=== PATIENT | female | born 1985 | race Caucasian/White ===

== ENCOUNTER 2021-03-03 20:26 | Emergency (ER) | payer OTHER ==
[2021-03-03 22:53] LABS: BASOPHIL 0.9 % (0-2); EOSINOPHIL 5.5 % (0-5); HCT 39.6 % (37.0-47.0); HGB 13.6 g/dl (12.5-16.0); LYMPHOCYTE 26.4 % (15-48); MCH 32.9 pg (25.0-31.0); MCHC 34.3 g/dL (32.0-36.0); MCV 95.9 fL (78.0-100.0); MONOCYTE 6.4 % (0-12); MPV 10.3 fL (6.0-9.5); NEUTROPHIL 60.5 % (41-80); NRBC 0; PLT 316 K/uL (150-400); RBC 4.13 M/uL (4.20-5.40); RDW 11.7 % (11.5-14.0); WBC 12.9 K/uL (4.0-10.5)
[2021-03-03 22:54] LABS: BILIRUBIN NEGATIVE (NEGATIVE); BLOOD NEGATIVE Ery/uL (NEGATIVE); CLARITY CLEAR (CLEAR); GLUCOSE (U) NORMAL (NORMAL); LEUKOCYTES 1+ Leu/uL (NEGATIVE); NITRITE NEGATIVE (NEGATIVE); PROTEIN NEGATIVE (NEGATIVE); UROBILINOGEN 0.2 mg/dL (0.2-1.0); pH 6.5 (5.0-9.0)
[2021-03-03 22:55] LABS: COLOR STRAW (YELLOW)
[2021-03-03 23:03] LABS: ALBUMIN 3.5 g/dL (3.4-5.0); BILIRUBIN - TOTAL 0.3 mg/dL (0.2-1.0); BUN/CREAT RATIO (CALC) 10.1 RATIO; CREATININE 0.79 mg/dL (0.51-0.95); GLOBULIN (CALCULATION) 3.8 g/dL; POTASSIUM 3.7 mmol/L (3.5-5.1); TOTAL PROTEIN 7.3 g/dL (6.4-8.2)
[2021-03-03 23:12] LABS: BACTERIA TRACE
[2021-03-03 23:13] LABS: URINARY RBC RARE
[2021-03-03 23:21] LABS: CORONAVIRUS 2019 SARS-COV-2 NEGATIVE (NEGATIVE); INFLUENZA A NAA NEGATIVE (NEGATIVE)
[2021-03-04] MEDS ORDERED: FIORICET1 EACH PO (00:13)
== END 2021-03-04 00:36 | disposition home or self-care (01) ==
LOC: FER 20:26
PROVIDERS: Emergency Medicine Emergency Medical Services
DX: R51.9 Headache, unspecified (principal); Z88.5 Allergy status to narcotic agent; Z88.1 Allergy status to other antibiotic agents; Z20.822 Contact with and (suspected) exposure to COVID-19
CPT/HCPCS: 36415; 80053; 81001; 85025; 96372; J1100; J1170; J1200; J1885; J2405; J2765; J3030; J7120; U0002

== ENCOUNTER 2021-03-09 16:43 | Emergency (ER) | payer OTHER ==
[~2021-03-09 16:43] MED LIST: FIORICET1 EACH PO
[2021-03-09 23:50] LABS: BASOPHIL 0.8 % (0-2); EOSINOPHIL 3.7 % (0-5); HCT 39.7 % (37.0-47.0); HGB 13.2 g/dl (12.5-16.0); LYMPHOCYTE 24.8 % (15-48); MCH 32.5 pg (25.0-31.0); MCHC 33.2 g/dL (32.0-36.0); MCV 97.8 fL (78.0-100.0); MONOCYTE 6.7 % (0-12); MPV 11.7 fL (6.0-9.5); NEUTROPHIL 62.9 % (41-80); NRBC 0; PLT 163 K/uL (150-400); RBC 4.06 M/uL (4.20-5.40); RDW 12.1 % (11.5-14.0); WBC 13.2 K/uL (4.0-10.5)
[2021-03-09 23:58] LABS: ALBUMIN 3.3 g/dL (3.4-5.0); ALKALINE PHOSHATASE 60 U/L (46-116); ALT 29 U/L (14-59); AST 28 U/L (15-37); BILIRUBIN - TOTAL 0.3 mg/dL (0.2-1.0); BUN 13 mg/dL (7-18); BUN/CREAT RATIO (CALC) 16.9 RATIO; CHLORIDE 104 mmol/L (98-107); CO2 (BICARBONATE) 24 mmol/L (21-32); CREATININE 0.77 mg/dL (0.51-0.95); GLOBULIN (CALCULATION) 3.7 g/dL; GLUCOSE 112 mg/dL (74-106); POTASSIUM 4.3 mmol/L (3.5-5.1)
[2021-03-09 23:59] LABS: C-REACTIVE PROTEIN < 0.20 mg/dL (<=0.90)
[2021-03-10 01:29] LABS: INR 0.99 (0.9-1.2); PROTHROMBIN TIME 12.5 SECONDS (11.8-13.4); PTT 26.8 SECONDS (24.4-34.7)
[2021-03-10 07:40] LABS: CLARITY (FLUID) CLEAR; COLOR (FLUID) COLORLESS; RBC (FLUID) 0 RBC/uL; WBC (FLUID) 1 WBC/uL
[2021-03-10] MEDS ORDERED: PERCOCET 5-3251 EACH PO (09:13)
[2021-03-10] MEDS ORDERED: PREDNISONE 20MG20 MG PO (09:13)
[2021-03-10] MEDS ORDERED: CAMBIA50 MG PO (09:13)
[2021-03-10] MEDS ORDERED: VIBRAMYCIN100 MG PO (09:13)
[2021-03-11 16:10] LABS: LYME IGG/IGM AB <0.91 ISR (0.00-0.90)
[2021-03-14 15:09] LABS: E. CHAFFEENSIS (HME) IGG TITER Negative (Neg:<1:64); E. CHAFFEENSIS (HME) IGM TITER Negative (Neg:<1:20); HGE IGG TITER Negative (Neg:<1:64); HGE IGM TITER Negative (Neg:<1:20)
[2021-03-16 16:08] LABS: FRANCISELLA TULARENSIS IGG Negative (Negative); FRANCISELLA TULARENSIS IGM Negative (Negative)
== END 2021-03-10 09:59 | disposition home or self-care (01) ==
LOC: FER 16:43
PROVIDERS: Emergency Medicine Emergency Medical Services
DX: R51.9 Headache, unspecified (principal); R70.0 Elevated erythrocyte sedimentation rate; Z88.5 Allergy status to narcotic agent; Z90.710 Acquired absence of both cervix and uterus; Z88.8 Allergy status to other drugs, medicaments and biological substances
CPT/HCPCS: 36415; 70450; 80053; 82945; 84155; 85025; 85610; 85730; 86140; 86618; 86666; 86757; 87070; 87205; 89051; 96372; J0780; J1100; J1170; J1200; J1885; J2765; J3030; J3360; J7030

== ENCOUNTER 2021-06-03 13:08 | Emergency (ER) | payer OTHER ==
[~2021-06-03 13:08] MED LIST changes: +CAMBIA50 MG PO; +PERCOCET 5-3251 EACH PO; +PREDNISONE 20MG20 MG PO; +VIBRAMYCIN100 MG PO
[2021-06-03] MEDS ORDERED: KEFLEX250 MG PO (14:31)
== END 2021-06-03 14:55 | disposition home or self-care (01) ==
LOC: FER 13:08
DX: S61.211A Laceration without foreign body of left index finger without damage to nail, initial encounter (principal); Z88.5 Allergy status to narcotic agent; Z88.1 Allergy status to other antibiotic agents; W26.0XXA Contact with knife, initial encounter; Y93.G1 Activity, food preparation and clean up; Y92.009 Unspecified place in unspecified non-institutional (private) residence as the place of occurrence of the external cause
CPT/HCPCS: 99282

== ENCOUNTER 2021-06-20 12:23 | Emergency (ER) | payer OTHER ==
[~2021-06-20 12:23] MED LIST changes: +KEFLEX250 MG PO
[2021-06-20] MEDS ORDERED: NORCO 5-325 TA1 EACH PO (15:42)
== END 2021-06-20 16:05 | disposition home or self-care (01) ==
LOC: FER 12:23
DX: S46.911A Strain of unspecified muscle, fascia and tendon at shoulder and upper arm level, right arm, initial encounter (principal); Z88.5 Allergy status to narcotic agent; Z88.1 Allergy status to other antibiotic agents; X50.1XXA Overexertion from prolonged static or awkward postures, initial encounter
CPT/HCPCS: 73030

== ENCOUNTER 2022-03-14 11:58 | Emergency (ER) | payer OTHER ==
[~2022-03-14 11:58] MED LIST changes: +NORCO 5-325 TA1 EACH PO
[2022-03-14] MEDS ORDERED: CEPHALEXIN500 MG PO (14:29)
[2022-03-14] MEDS ORDERED: NORCO 5-325 TA1 EACH PO (14:29)
== END 2022-03-14 14:39 | disposition home or self-care (01) ==
LOC: FER 11:58
DX: S91.351A Open bite, right foot, initial encounter (principal); L03.115 Cellulitis of right lower limb; Z88.1 Allergy status to other antibiotic agents; Z88.5 Allergy status to narcotic agent; W57.XXXA Bitten or stung by nonvenomous insect and other nonvenomous arthropods, initial encounter; Y92.009 Unspecified place in unspecified non-institutional (private) residence as the place of occurrence of the external cause
CPT/HCPCS: 73630